=== PATIENT | male | born 2000 | race Caucasian/White ===

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

== ENCOUNTER 2019-11-10 01:23 | Emergency (ER) | payer OTHER ==
[~2019-11-10] VITALS: Ht 165.1 cm; Wt 49.9 kg
[2019-11-10 01:35] VITALS: Ht 165.1 cm; Wt 49.9 kg
[2019-11-10 05:48] VITALS: BP 108/82
== END 2019-11-10 05:49 | disposition home or self-care (01) ==
LOC: ED 01:23
DX: S61.212A Laceration without foreign body of right middle finger without damage to nail, initial encounter (principal); S61.214A Laceration without foreign body of right ring finger without damage to nail, initial encounter; W26.8XXA Contact with other sharp object(s), not elsewhere classified, initial encounter; Y93.89 Activity, other specified; Y92.89 Other specified places as the place of occurrence of the external cause; Y99.8 Other external cause status
CPT/HCPCS: 90715; 99406; J2001; Q0092